=== PATIENT | female | born 1990 | race African-American/Black ===

== ENCOUNTER → 2017-03-30 | Outpatient (CLI) | payer OTHER ==
[2013-06-12 15:17] VITALS: BP 174/94
[2017-03-30 09:56] LABS: BASOPHILS # (AUTO) 0.1 X10^3/uL (0.0-0.1); BASOPHILS % (AUTO) 0.7 % (0.2-1.0); EOSINOPHILS # (AUTO) 0.1 x10^3/uL (0.0-0.2); HEMATOCRIT 30.3 % (36.0-47.0); LYMPHOCYTES # (AUTO) 1.5 X10^3/uL (1.3-2.9); MEAN CORPUSCULAR HEMOGLOBIN 25.1 pg (27.0-34.0); MEAN CORPUSCULAR HGB CONC 32.9 g/dL (33.0-35.0); MEAN CORPUSCULAR VOLUME 76.2 fL (80.0-100.0); MEAN PLATELET VOLUME 10.6 fL (7.4-11.0); MONOCYTES # (AUTO) 0.5 x10^3/uL (0.3-0.8); MONOCYTES % (AUTO) 5.2 % (0.0-13.0); NEUTROPHILS # (AUTO) 7.4 x10^3/uL (2.2-4.8); NEUTROPHILS % (AUTO) 77.1 % (42.0-75.0); PLATELET COUNT 163 X10^3/uL (150.0-450.0); RED BLOOD COUNT 3.98 X10^6/uL (3.5-5.4); RED CELL DISTRIBUTION WIDTH 15.3 % (11.6-16.5); WHITE BLOOD COUNT 9.6 X10^3/uL (3.6-10.0)
[2017-03-30 09:57] LABS: BILIRUBIN,URINE NEGATIVE (NEGATIVE); BLOOD/HEMOGLOBIN,URINE 2+ (NEGATIVE); GLUCOSE, URINE NEGATIVE (NEGATIVE); KETONES,URINE NEGATIVE (NEGATIVE); LEUKOCYTE ESTERASE ,URINE 1+ (NEGATIVE); NITRITES,URINE NEGATIVE (NEGATIVE); PH,URINE 6.5 (5.0 - 8.0); PROTEIN,URINE 2+ (NEGATIVE); UROBILINOGEN,URINE 1+ (NORMAL)
[2017-03-30 09:58] LABS: BLOOD UREA NITROGEN 6 mg/dL (7-18); CARBON DIOXIDE 22.4 mmol/L (21-32); CHLORIDE 106 mmol/L (98-107); CREATININE 0.44 mg/dL (0.55-1.02); GLUCOSE 95 mg/dL (65-99); SODIUM 138 mmol/L (136-145); eGFR BLACK RACES > 60 (>60); eGFR NON BLACK RACES > 60 (>60)
[2017-03-30 10:11] LABS: APPEARANCE,URINE CLOUDY (CLEAR); BACTERIA,URINE 1+ /HPF (NEGATIVE); COLOR,URINE YELLOW (YELLOW); SQUAMOUS EPITHELIAL CELL,UR MODERATE /HPF (NEGATIVE)
[2017-03-30 10:27] LABS: MICROCYTOSIS SLIGHT; PLATELET MORPHOLOGY COMMENT NORMAL (NORMAL); POIKILOCYTOSIS SLIGHT
== END ==
LOC: LAB 09:16
PROVIDERS: ATTEND Specialist
DX: Z01.818 Encounter for other preprocedural examination (principal); Z34.83 Encounter for supervision of other normal pregnancy, third trimester
CPT/HCPCS: 36415; 80048; 81001; 85025; 85610; 85730; 86592; 86850; 86900; 86901; 87086

== ENCOUNTER 2017-04-02 06:14 | Inpatient (IN) | payer OTHER ==
[2017-04-02] MEDS ORDERED: ANCEF VIAL 1 GM ONE (06:24)
[2017-04-02] MEDS ORDERED: NS 50 ML IV + SPIKE MINIBAG* 50 ML IV ONE (06:24)
[2017-04-02] MEDS ORDERED: LR 1000 ML IV 1,000 ML IV ONE (06:24)
[2017-04-02] MEDS ORDERED: D5 1/2 NS 1000 ML 1,000 ML IV ONE (06:25)
[2017-04-02] MEDS ORDERED: ANCEF VIAL 1 GM 1 GM in NS 50 ML IV + SPIKE MINIBAG* 50 ML IV PRN (06:58)
[2017-04-02] MEDS ORDERED: D5 1/2 NS 1000 ML 1,000 ML IV SCH (06:58)
[2017-04-02] MEDS ORDERED: DURAMORPH ONE (06:59)
[2017-04-02 07:54] LABS: BILIRUBIN,URINE NEGATIVE (NEGATIVE); BLOOD/HEMOGLOBIN,URINE 1+ (NEGATIVE); GLUCOSE, URINE NEGATIVE (NEGATIVE); KETONES,URINE NEGATIVE (NEGATIVE); LEUKOCYTE ESTERASE ,URINE NEGATIVE (NEGATIVE); NITRITES,URINE NEGATIVE (NEGATIVE); PROTEIN,URINE NEGATIVE (NEGATIVE); UROBILINOGEN,URINE NORMAL (NORMAL)
[2017-04-02] MEDS ORDERED: NS IRRIGATION 1000 ML 1,000 ML IR ONE (07:58)
[2017-04-02 08:26] LABS: APPEARANCE,URINE CLEAR (CLEAR); BACTERIA,URINE TRACE /HPF (NEGATIVE); COLOR,URINE YELLOW (YELLOW); RBC,URINE 0-3 /HPF (NEGATIVE); SQUAMOUS EPITHELIAL CELL,UR MODERATE /HPF (NEGATIVE)
[2017-04-02] MEDS ORDERED: ZOFRAN INJ 4 MG VIAL ONE (08:57)
[2017-04-02] MEDS ORDERED: NORMODYNE TAB 100 MG PO SCH (09:00)
[2017-04-02] MEDS ORDERED: PREVACID PO SCH (09:00)
[2017-04-02] MEDS ORDERED: DILAUDID INJ IVP PRN (09:02)
[2017-04-02] MEDS ORDERED: ZOFRAN INJ 4 MG VIAL IVP PRN ×2 (09:02→09:08)
[2017-04-02] MEDS ORDERED: REGLAN INJ 10 MG VIAL IVP PRN ×2 (09:02→09:08)
[2017-04-02] MEDS ORDERED: BENADRYL INJ 50 MG VIAL IVP PRN ×2 (09:02→09:08)
[2017-04-02] MEDS ORDERED: PHENERGAN INJ 25 MG IVP PRN (09:02)
[2017-04-02] MEDS ORDERED: ADACEL TDaP IM ONE (09:08)
[2017-04-02] MEDS ORDERED: TORADOL 30 MG VIAL IVP PRN (09:08)
[2017-04-02] MEDS ORDERED: D5 1/2 NS 1000 ML 1,000 ML with PITOCIN 20 UNITS IV SCH ×2 (09:08)
[2017-04-02] MEDS ORDERED: MYLICON TAB 80 MG CHEW PO PRN (09:08)
[2017-04-02] MEDS ORDERED: PERCOCET TAB 5/325 MG PO PRN (09:08)
[2017-04-02] MEDS ORDERED: NARCAN INJ IVP PRN (09:08)
[2017-04-02] MEDS: PRENATAL PLUS PO SCH (10:24)
[2017-04-02] MEDS: ZANTAC PO SCH ×2 (10:25→21:52)
[2017-04-02] MEDS ORDERED: PITOCIN ONE (13:01)
[2017-04-02] MEDS ORDERED: VERSED ONE (13:01)
[2017-04-02] MEDS ORDERED: EPHEDRINE SULFATE INJ ONE (13:01)
[2017-04-02] MEDS ORDERED: DIPRIVAN VIAL ONE (13:01)
[2017-04-02] MEDS ORDERED: FERROUS SULFATE PO SCH (17:00)
[2017-04-02] MEDS: FERROUS SULFATE PO SCH (18:18)
[2017-04-02] MEDS: NORMODYNE TAB 100 MG PO SCH (21:52)
[2017-04-03] MEDS: PERCOCET TAB 5/325 MG PO PRN ×3 (03:20→21:20)
[2017-04-03 05:20] LABS: HEMATOCRIT 27.3 % (36.0-47.0)
[2017-04-03] MEDS: FERROUS SULFATE PO SCH ×2 (06:23→17:48)
[2017-04-03] MEDS ORDERED: MOTRIN TAB 800 MG PO PRN (07:23)
[2017-04-03] MEDS: ZANTAC PO SCH ×2 (08:50→21:22)
[2017-04-03] MEDS: COLACE CAP 100 MG PO SCH ×2 (08:50→21:22)
[2017-04-03] MEDS: PRENATAL PLUS PO SCH (08:51)
[2017-04-03] MEDS: NORMODYNE TAB 100 MG PO SCH ×2 (08:51→21:24)
[2017-04-03] MEDS: PREVACID PO SCH (08:52)
[2017-04-03] MEDS ORDERED: ADACEL TDaP IM ONE ×2 (10:45→13:20)
[2017-04-03] MEDS: BACTROBAN OINT TOP SCH ×2 (13:28→21:29)
[2017-04-04] MEDS ORDERED: DEPO-PROVERA CONTRACEPTIVE INJ IM ONE (06:18)
[2017-04-04] MEDS: FERROUS SULFATE PO SCH (06:21)
[2017-04-04] MEDS: NORMODYNE TAB 100 MG PO SCH (08:41)
[2017-04-04] MEDS: COLACE CAP 100 MG PO SCH (08:41)
[2017-04-04] MEDS: PREVACID PO SCH (08:42)
[2017-04-04] MEDS: PRENATAL PLUS PO SCH (08:42)
[2017-04-04] MEDS: ZANTAC PO SCH (08:43)
[2017-04-04 11:37] VITALS: BP 168/94
== END 2017-04-04 12:25 | disposition home or self-care (01) | DRG 765 ==
LOC: LD 06:14 → MED/SURG 08:37
PROVIDERS: ADMIT Specialist; ATTEND Specialist
PROC: 10D00Z1 Extraction of Products of Conception, Low, Open Approach (ICD-10-PCS; principal; 2017-04-02 07:30)
PROC: 3E0234Z Introduction of Serum, Toxoid and Vaccine into Muscle, Percutaneous Approach (ICD-10-PCS; 2017-04-03)
DX: O34.211 Maternal care for low transverse scar from previous cesarean delivery (principal); O10.013 Pre-existing essential hypertension complicating pregnancy, third trimester; Z37.0 Single live birth; O99.02 Anemia complicating childbirth; D50.8 Other iron deficiency anemias; O99.613 Diseases of the digestive system complicating pregnancy, third trimester; N85.8 Other specified noninflammatory disorders of uterus; O99.824 Streptococcus B carrier state complicating childbirth; B95.1 Streptococcus, group B, as the cause of diseases classified elsewhere; Z3A.38 38 weeks gestation of pregnancy
CPT/HCPCS: 36415; 81001; 85014; 85018; A4222; S0197; J0690; J1050; J2250; J2405; J2590; J3490; J7042; J7120